=== PATIENT | male | born 1955 | race African-American/Black ===

== ENCOUNTER 2019-09-14 21:16 | Emergency (ER) | payer MEDICARE ==
[~2019-09-14] VITALS: Ht 182.9 cm; Wt 135.4 kg
[2019-09-14 21:51] LABS: BASOPHILS # (AUTO) 0.02 x10^3/uL (0-0.1); BASOPHILS % (AUTO) 1 % (0-1); EOSINOPHILS % (AUTO) 2 % (1-7); LYMPHOCYTES # (AUTO) 1.42 x10^3/uL (1-3.4); LYMPHOCYTES % (AUTO) 29 % (22-44); MD NO; MEAN CORPUSCULAR HEMOGLOBIN 31.2 pg (27.5-34.5); MEAN CORPUSCULAR HGB CONC 33.9 g/dL (33.2-36.2); MEAN CORPUSCULAR VOLUME 92.2 fL (81-97); MEAN PLATELET VOLUME 9.9 fL (7.4-10.4); MONOCYTES % (AUTO) 10 % (2-9); NEUTROPHILS # (AUTO) 2.79 x10^3/uL (1.8-6.8); NEUTROPHILS % (AUTO) 58 % (42-75); PLATELET COUNT 142 x10^3/uL (130-400); RED BLOOD COUNT 4.39 x10^6/uL (4.38-5.82)
[2019-09-14 22:04] LABS: ALANINE AMINOTRANSFERASE 27 U/L (12-78); ALBUMIN 3.6 g/dL (3.4-5.0); ANION GAP 8 mmol/L (5-15); CALCIUM 8.9 mg/dL (8.5-10.1); CHLORIDE 104 mmol/L (98-107); CREATININE 1.04 mg/dL (0.7-1.3)
[2019-09-14 22:05] LABS: BILIRUBIN,TOTAL 0.4 mg/dL (0.2-1.0)
[2019-09-14 22:06] LABS: ALKALINE PHOSPHATASE 69 U/L (45-117); TOTAL PROTEIN 7.4 g/dL (6.4-8.2)
--- NOTE | 2019-09-14 22:15 | NUR ---
Pt now reporting his dizziness continues to improve and has almost resolved.
[2019-09-14 22:24] VITALS: BP 145/70
--- NOTE | 2019-09-14 22:31 | NUR ---
Pt road tested per MD order. Pt able to sit up, stand, and ambulate without any dizziness or complication.
== END 2019-09-14 23:01 | disposition home or self-care (01) ==
LOC: ED 22:30
DX: R55 Syncope and collapse (principal); R42 Dizziness and giddiness; H53.8 Other visual disturbances; E11.9 Type 2 diabetes mellitus without complications
CPT/HCPCS: 36415; 80053; 83735; 85025; 93005; 99283; 99284

== ENCOUNTER 2020-07-29 17:19 | Emergency (ER) | payer MEDICARE ==
[~2020-07-29] VITALS: Ht 182.9 cm; Wt 120.0 kg
[2020-07-29 17:27] VITALS: BP 156/75
--- NOTE | 2020-07-29 17:35 | NUR ---
PT TAKEN TO IMAGING. NAD NOTED AT THIS TIME.
--- NOTE | 2020-07-29 18:12 | NUR ---
PT AWAITING ERMD RECHECK. PT SITTING UP IN BED, RESPIRATIONS EVEN AND UNLABORED ON RA. NAD NOTED AT THIS TIME.
--- NOTE | 2020-07-29 18:58 | NUR ---
REPORT TO VERITO OROZCO.
[2020-07-29] MEDS ORDERED: HYDROcodone/APAP 5/325 TABLET PO ONE (19:00)
[2020-07-29] MEDS ORDERED: HYDROcodone/APAP 5/325 TABLET ONE (19:02)
== END 2020-07-29 19:17 | disposition home or self-care (01) ==
LOC: ED 17:50
DX: S16.1XXA Strain of muscle, fascia and tendon at neck level, initial encounter (principal); R42 Dizziness and giddiness; I10 Essential (primary) hypertension; E11.9 Type 2 diabetes mellitus without complications; Z87.891 Personal history of nicotine dependence; V49.59XA Passenger injured in collision with other motor vehicles in traffic accident, initial encounter; Y93.89 Activity, other specified; Y92.410 Unspecified street and highway as the place of occurrence of the external cause; Y99.8 Other external cause status
CPT/HCPCS: 72050; 99283